=== PATIENT | male | born 1945 | race Caucasian/White ===

== ENCOUNTER 2021-01-17 14:23 | Emergency (ER) | payer MEDICARE, OTHER, SELFPAY ==
[2021-01-17 14:39] VITALS: BP 116/60; PULSE 58; RESP 16; TEMP 36.7; O2SAT 96
--- NOTE | 2021-01-17 15:13 | ED.URI ---
HPI - URI/Sore Throat General Chief Complaint: Upper Respiratory Infection Stated Complaint: Bronchitis Source: patient and RN notes reviewed Limitations: no limitations History of Present Illness HPI Narrative: The unvaccinated patient, a non-smoker/nondrinker with hx prior Covid illness, presents with a half week history of yellow sputum producing cough. No fever, wheezing, no CP, calf pain/edema, S OB, wheezing/sneezing, smokers/pet triggers, no loss of taste/smell. Symptoms are mild, slightly worse sleeping/supine Related Data Home Medications Medication Instructions Recorded Confirmed losartan 100 mg PO DAILY 01/17/21 01/17/21 Allergies Allergy/AdvReac Type Severity Reaction Status Date / Time diazepam [From Valium] AdvReac Other Verified 01/17/21 14:34 Review of Systems Review of Systems: General/Constitutional: No weight loss,fever Eyes: N0: Redness,discharge Ears/Nose/Throat: No: Epistaxis,ear discharge Respiratory: Denies: Hemoptysis Gastrointestinal: No Vomiting, Bleeding-rectal Skin: No Lumps, eruption Neurologic: No Focal Weakness,Sz Hematologic: Denies: Petechiae/Purpura Psychiatric: No: Suicida ideationl All Other Systems: Reviewed and Negative PMFSH Comments At time of signature, agree with nursing past medical, surgical, social and family history. There is no relevant family history pertinent to the presenting complaint Exam Narrative: General Appearance: Well appearing, Well nourished EYE: PERRLA, Conjunctiva clear Ears: Auditory canal normal, TM normal Nose: Rhinorrhea, Mucousal erythema Mouth/Throat: MM moist, Uvula midline, Pharyngeal erythema without exudate Neck: Supple, No adenopathy Respiratory: No respiratory distress, Breath sounds equal, Clear to auscultation Cardiovascular: RRR, No JVD Musculoskeletal: Non tender, Normal strength Skin: Warm, Dry Neurological: A&O x3, CN II-XII intact Psychiatric: Normal mood, Normal affect Course Vital Signs Vital signs: Vital Signs Temperature 98.0 F 01/17/21 14:39 Pulse Rate 58 L 01/17/21 14:39 Respiratory Rate 16 01/17/21 14:39 Blood Pressure 116/60 01/17/21 14:39 Pulse Oximetry 96 01/17/21 14:39 Temperature 98.0 F 01/17/21 14:39 Pulse Rate 58 L 01/17/21 14:39 Respiratory Rate 16 01/17/21 14:39 Blood Pressure 116/60 01/17/21 14:39 Pulse Oximetry 96 01/17/21 14:39 MDM - URI/Sore Throat Lab Data Labs: Lab Results 01/17/21 Range/Units 14:47 POC SARS CoV-2 Ag Negative (Negative) Influenza A Screen Negative Reference Range: Negative Influenza B Screen Negative Reference Range: Negative Discharge Plan Discharge Clinical Impression: Sinus headache, Cough Patient Disposition: Home, Self-Care Condition: Stable Instructions: Antibiotic Form, Acute Bronchitis (ED) Prescriptions: New benzonatate 100 mg capsule 100 mg PO TID PRN (Reason: cough) Qty: 20 RF: 2 codeine-guaifenesin 10-100 mg/5 mL liquid 7.5 ml PO BID PRN (Reason: cough) Qty: 118 RF: 0 cefuroxime axetil 500 mg tablet 500 mg PO Q12H Qty: 14 RF: 0 No Action losartan 100 mg Tablet 100 mg PO DAILY RF: 0 Follow-up/Referrals: PHYSICIAN,SHIP ENGINEER [Primary Care Provider] -
== END 2021-01-17 15:19 | disposition home or self-care (01) ==
PROVIDERS: Emergency Provider Emergency Medicine
DX: J32.9 Chronic sinusitis, unspecified (principal); R05.9 Cough, unspecified; Z20.822 Contact with and (suspected) exposure to COVID-19
CPT/HCPCS: 87426; 87804; 99213; C9803; G0463

== ENCOUNTER 2021-08-08 06:56 | Emergency (ER) | payer MEDICARE, OTHER, SELFPAY ==
[2021-08-08 06:58] VITALS: BP 113/68; PULSE 86; RESP 18; TEMP 37.1; O2SAT 95
--- NOTE | 2021-08-08 07:28 | ED.GENADULT ---
HPI - General Adult General Chief complaint: Skin/Abscess/Foreign Body Stated complaint: monkey pox Time Seen by Provider: 08/08/21 07:00 History of Present Illness HPI narrative: 76-year-old male presenting to the emergency department for evaluation of a rash to his right wrist that has progressed over the last 6 days. Patient states he initially noticed a red and vesicular rash on the right wrist and right thumb. Patient states over the course of the last 6 days he has noticed more rash the forearm up to the shoulder. Patient states that the rash does not itch and does not hurt. Patient denies any exposure to poison [place]mo. Patient states he has never had shingles before. Patient denies any other significant symptoms. Patient states he does have some pain up in his shoulder. Patient denies any falls or injuries. Patient denies any fevers. Patient was concerned for the cough. Patient has no known exposure to multiplex. Related Data Home Medications Medication Instructions Recorded Confirmed losartan 100 mg tablet 100 mg PO DAILY 01/17/21 01/17/21 Allergies Allergy/AdvReac Type Severity Reaction Status Date / Time diazepam [From Valium] AdvReac Other Verified 08/08/21 07:03 Review of Systems Review of Systems: CONSTITUTIONAL: Denies fever, chills, or sweats. EYES: Denies visual changes, redness, or discharge. ENT: Denies rhinorrhea, congestion, sore throat, or otalgia. CARDIOVASCULAR: Denies chest pain, palpitations, or edema. RESPIRATORY: Denies cough or dyspnea. GASTROINTESTINAL: Denies abdominal pain, nausea, vomiting, or diarrhea. GENITOURINARY: Denies dysuria or hematuria. SKIN: See HPI MUSCULOSKELETAL: See HPI NEUROLOGIC: Denies headache, numbness, or weakness. PSYCHIATRIC: Denies anxiety or depression. Exam Narrative: APPEARANCE: No acute distress, nontoxic, resting in bed EYES: EOMI HEENT: Normocephalic, atraumatic, OMM RESPIRATORY: No respiratory distress Clear to auscultation bilaterally with no rhonchi wheezing or rales. CARDIOVASCULAR: Regular rate and rhythm without murmurs rubs or gallops. ABDOMINAL: Soft, nontender, nondistended, no rebound or guarding MUSCULOSKELETAl: Moves all extremities. No clubbing, cyanosis or edema. NEURO: Awake and alert. Following commands, speech normal, no focal deficits SKIN: Vesicular rash on right arm consistent with a c6 dermatome. no other rash. PSYCHIATRIC: Normal affect/mood, Course Course Emergency Course: treating rash as shingles. Patient was comfortable with the plan for close outpatient follow-up. Patient was started on valacyclovir in the ED and discharged on the same. Vital Signs Vital signs: Vital Signs Temperature 98.7 F 08/08/21 06:58 Pulse Rate 86 08/08/21 06:58 Respiratory Rate 18 08/08/21 06:58 Blood Pressure 113/68 08/08/21 06:58 Pulse Oximetry 95 08/08/21 06:58 Oxygen Delivery Room Air 08/08/21 06:58 Temperature 98.7 F 08/08/21 06:58 Pulse Rate 86 08/08/21 06:58 Respiratory Rate 18 08/08/21 06:58 Blood Pressure 113/68 08/08/21 06:58 Pulse Oximetry 95 08/08/21 06:58 Oxygen Delivery Room Air 08/08/21 06:58 Medical Decision Making Vital Signs Vital Signs: Vital Signs Temperature 98.7 F 08/08/21 06:58 Pulse Rate 86 08/08/21 06:58 Respiratory Rate 18 08/08/21 06:58 Blood Pressure 113/68 08/08/21 06:58 Pulse Oximetry 95 08/08/21 06:58 Oxygen Delivery Room Air 08/08/21 06:58 Temperature 98.7 F 08/08/21 06:58 Pulse Rate 86 08/08/21 06:58 Respiratory Rate 18 08/08/21 06:58 Blood Pressure 113/68 08/08/21 06:58 Pulse Oximetry 95 08/08/21 06:58 Oxygen Delivery Room Air 08/08/21 06:58 Discharge Plan Discharge Clinical Impression: Shingles Qualifiers: Herpes zoster complications: without complications Qualified Code(s): B02.9 - Zoster without complications Patient Disposition: Home, Self-Care Condition: Stable Instructions: Antibiot
[2021-08-08] MEDS: valACYclovir HCL 500 MG TABLET 1000 MG PO (07:54)
[2021-08-08] MEDS: HYDROcodone/acetaminophen (*CRX) 5-325 MG TABLET 1 TAB PO (07:54)
== END 2021-08-08 08:12 | disposition home or self-care (01) ==
PROVIDERS: Emergency Provider Emergency Medicine
DX: B02.9 Zoster without complications (principal)
CPT/HCPCS: 99283; A9270

== ENCOUNTER 2022-01-22 00:18 | Emergency (ER) | payer MEDICARE, OTHER, SELFPAY ==
[2022-01-22 00:21] VITALS: BP 148/73; PULSE 77; RESP 20; TEMP 36.9; O2SAT 98
[2022-01-22 01:19] LABS: Appearance Urine Clear (Clear); Bilirubin Urine Negative (Negative); Blood Urine Negative (Negative); Color Urine Yellow (Yellow); Glucose Urine UA Negative (Negative); Ketones Urine Negative (Negative); Leukocyte Esterase Ur Negative LEU/UL (Negative); Nitrate Urine Negative (Negative); Protein Urine Negative (Negative); Urobilinogen Urine 0.2 mg/dL (<2.0)
[2022-01-22 01:20] LABS: Add Urine Microscopic? NO
--- NOTE | 2022-01-22 03:01 | ED.GENADULT ---
HPI - General Adult General Chief complaint: Urogenital-Male Stated complaint: urinary spasms Time Seen by Provider: 01/22/22 01:59 History of Present Illness HPI narrative: This is a 77-year-old male presenting to ED with chief complaint of prostate spasms. Patient says that he has had prostate issues for a long time. He has had a TURP recently. Patient reports sharp pain in his perineum and rectum when he tries to urinate. He is having difficulty initiating and maintaining his urine stream. Patient has not taken anything for his symptoms. He denies pain on urination, urinary urgency or frequency but feels like he is having incomplete voiding. Related Data Home Medications Medication Instructions Recorded Confirmed losartan 100 mg tablet 100 mg PO DAILY 01/17/21 01/17/21 Allergies Allergy/AdvReac Type Severity Reaction Status Date / Time diazepam [From Valium] AdvReac Other Verified 08/08/21 07:03 Review of Systems Review of Systems: CONSTITUTIONAL: Denies night sweats. EYES: No eye pain ENT: Denies rhinorrhea CARDIOVASCULAR: Denies palpitations RESPIRATORY: Denies hemoptysis GASTROINTESTINAL: Denies hematemesis GENITOURINARY: Denies hematuria. SKIN: Denies rash MUSCULOSKELETAL: Denies myalgia. NEUROLOGIC: Denies weakness. PSYCHIATRIC: Denies delusions PMFSH Past Medical History Medical History BPH (benign prostatic hyperplasia) GERD (gastroesophageal reflux disease) HTN (hypertension) Surgical History Surgical History H/O arthroscopic knee surgery H/O hernia repair S/P TURP Social History Social History Social History: patient denies use of alcohol cigarettes or drugs Exam Narrative: APPEARANCE: No apparent distress. Head: atraumatic. EYES: EOMI, NOSE: Atraumatic NECK: Trachea midline RESPIRATORY: No increased rate of breathing CARDIOVASCULAR: RRR, ABDOMINAL: Non-distended no tenderness in the suprapubic area, no guarding or rebound Rectal exam: Smooth prostate without bogginess or tenderness MUSCULOSKELETAl: No obvious deformities NEURO: Alert. Moving 4/4 extremities SKIN:: Warm, dry. Normal color PSYCHIATRIC: Normal affect Course Vital Signs Vital signs: Vital Signs Temperature 98.4 F 01/22/22 00:21 Pulse Rate 77 01/22/22 00:21 Respiratory Rate 20 01/22/22 00:21 Blood Pressure 148/73 H 01/22/22 00:21 Pulse Oximetry 98 01/22/22 00:21 Oxygen Delivery Room Air 01/22/22 00:21 Temperature 98.4 F 01/22/22 00:21 Pulse Rate 77 01/22/22 00:21 Respiratory Rate 20 01/22/22 00:21 Blood Pressure 148/73 H 01/22/22 00:21 Pulse Oximetry 98 01/22/22 00:21 Oxygen Delivery Room Air 01/22/22 00:21 Medical Decision Making MDM Narrative Medical decision making narrative: is a 77-year-old male presenting to the ED with difficulty urinary and painful spasms. Patient be treated Motrin Tylenol and a belladonna suppository. Urinalysis did no indicate infection. Bladder scan was performed. Postvoid residual was 125. Patient is not retaining urine there is no indication for Ramírez placement. Patient was able to urinate after the belladonna suppository. He is not reporting pain. He will be discharged with urology follow-up. Vital Signs Vital Signs: Vital Signs Temperature 98.4 F 01/22/22 00:21 Pulse Rate 77 01/22/22 00:21 Respiratory Rate 20 01/22/22 00:21 Blood Pressure 148/73 H 01/22/22 00:21 Pulse Oximetry 98 01/22/22 00:21 Oxygen Delivery Room Air 01/22/22 00:21 Temperature 98.4 F 01/22/22 00:21 Pulse Rate 77 01/22/22 00:21 Respiratory Rate 20 01/22/22 00:21 Blood Pressure 148/73 H 01/22/22 00:21 Pulse Oximetry 98 01/22/22 00:21 Oxygen Delivery Room Air 01/22/22 00:21 Lab Data Labs: Lab Results 01/22/22 Range/Units
[2022-01-22] MEDS: guaiFENesin/DEXTROMETHORPHAN 10 ML UDC PO (04:59)
[2022-01-22 05:01] VITALS: BP 109/80; PULSE 80; RESP 12; O2SAT 97
[2022-01-22] MEDS: HYDROcodone/acetaminophen (*CRX) 5-325 MG TABLET 1 TAB PO (05:23)
== END 2022-01-22 05:20 | disposition home or self-care (01) ==
PROVIDERS: Emergency Provider Emergency Medicine
DX: N35.919 Unspecified urethral stricture, male, unspecified site (principal); N40.0 Benign prostatic hyperplasia without lower urinary tract symptoms; I10 Essential (primary) hypertension; K21.9 Gastro-esophageal reflux disease without esophagitis
CPT/HCPCS: 81003; 99283; A9270

== ENCOUNTER 2023-08-07 15:42 | Inpatient (IN) | payer MEDICARE, SELFPAY ==
--- NOTE | ~2023-08-07 | XR_ITS ---
EXAMINATION: XR chest 2V DATE: 08/07/2023 16:10 INDICATION: Chest pressure. TECHNIQUE: Frontal and lateral views of the chest were obtained. COMPARISON: None. FINDINGS: A calcified right lung nodule and calcified right hilar lymph nodes are consistent with old granulomatous disease. No pleural effusion or pneumothorax. The heart size is normal. IMPRESSION: 1. No acute cardiopulmonary disease. Reviewed, dictated and finalized at location E.
--- NOTE | 2023-08-07 15:43 | ECG_ITS ---
Test Date: 2023-08-07 15:55:33 Measurements Intervals [place] Rate: 67 P: 41 OH: 149 QRS: 25 QRSD: 121 T: 38 QT: 383 QTc: 406 Interpretive Statements SINUS RHYTHM WITH SINUS ARRHYTHMIA WITHIN NORMAL LIMITS No previous ECG available for comparison Electronically Signed On 08-08-2023 07:20:08 CDT by Scooby Osei M.D.
[2023-08-07 15:48] VITALS: BP 151/59; PULSE 70; RESP 16; TEMP 36.3; O2SAT 100
[2023-08-07 16:09] LABS: Basophils Absolute Auto 0.1 K/mm3 (0.0-0.1); Basophils Percent Auto 1.1 % (0.2-1.2); Eosinophils Absolute Auto 0.1 K/mm3 (0-0.3); Eosinophils Percent Auto 2.2 % (0-4.4); Hematocrit 39.2 % (42.0-52.0); Hemoglobin 13.1 g/dL (14.0-18.0); Immature Granulocyte Absolute 0.01 K/mm3 (0.00-0.031); Immature Granulocyte Percent A 0.2 % (0-0.5); Lymphocytes Absolute Auto 1.39 K/mm3 (0.9-3.2); Lymphocytes Percent Auto 31.1 % (18.3-44.2); Mean Corpuscular HGB Conc 33.4 g/dl (32-36); Mean Corpuscular Hemoglobin 30.6 pg (26-34); Mean Corpuscular Volume 91.6 fl (80-100); Mean Platelet Volume 9.8 fl (7.4-10.4); Monocytes Absolute Auto 0.3 K/mm3 (0.1-0.6); Monocytes Percent Auto 7.6 % (2.6-8.5); Neutrophils Absolute Auto 2.6 K/mm3 (1.3-6.7); Neutrophils Percent Auto 57.8 % (45.5-73.1); Platelet Count Result 202 k/mm3 (150-375); Red Blood Count 4.28 M/mm3 (4.6-6.20); Red Cell Distribution Width 12.8 % (11.5-14.5); White Blood Count 4.5 K/mm3 (4.5-10.0)
[2023-08-07 16:20] LABS: Alanine Aminotransferase 13 U/L (6-50); Albumin Level 3.9 g/dL (3.5-5.1); Alkaline Phosphatase 58 U/L (38-126); Anion Gap 4 mmol/L (4-12); Aspartate Amino Transferase 20 U/L (17-59); Bilirubin,Total 0.5 mg/dL (0.2-1.3); Blood Urea Nitrogen 12 mg/dL (9-20); Calcium 8.4 mg/dL (8.4-10.2); Carbon Dioxide 27 mmol/L (22-30); Chloride 105 mmol/L (98-107); Estimated CRCL calculation 50 ml/min; Estimated Glomerular Filt Rate 54; Glucose 135 mg/dL (65-110); Lipase 91 U/L (23-300); Potassium 3.8 mmol/L (3.4-5.0); Sodium 136 mmol/L (137-145)
[2023-08-07 16:31] LABS: Troponin I < 0.012 ng/mL (0.000-0.034)
[2023-08-07 16:37] LABS: Prothrombin Time 13.7 Seconds (11.1-14.7)
[2023-08-07 16:38] LABS: Partial Thromboplastin Time 27.9 Seconds (22.3-36.8)
--- NOTE | 2023-08-07 18:42 | ECG_ITS ---
Test Date: 2023-08-07 18:46:25 Measurements Intervals [place] Rate: 58 P: 43 AR: 156 QRS: 11 QRSD: 106 T: 34 QT: 397 QTc: 391 Interpretive Statements SINUS BRADYCARDIA OTHERWISE NORMAL ELECTROCARDIOGRAM Compared to ECG 08/07/2023 15:55:33 SOME REDUCTION IN HEART RATE OTHERWISE NO DIFFERENCE Electronically Signed On 08-08-2023 07:24:57 CDT by Scooby Osei M.D.
--- NOTE | 2023-08-07 19:27 | PC.NURSE ---
Assumed care of pt from ISA Ricks at this time. Pt resting comfortably in bed w call light within reach.
[2023-08-07 19:28] LABS: Troponin I 0.027 ng/mL (0.000-0.034)
[2023-08-07 19:36] VITALS: BP 121/74; PULSE 55; RESP 17; O2SAT 97
[2023-08-07 19:53] LABS: NT Pro B Type Natriuretic Pept 216 pg/mL (19.9-100)
[2023-08-07 20:00] LABS: D Dimer 0.28 ug/mL (<0.48)
--- NOTE | 2023-08-07 20:10 | ED.GENADULT ---
HPI - General Adult General Chief complaint: Chest Pain Stated complaint: chest pressure Time Seen by Provider: 08/07/23 19:22 History of Present Illness HPI narrative: This is a 78-year-old male presenting ED with chief complaint of chest pain. Patient states that over the last week he has been having intermittent chest tightness that radiates to both shoulders and hands. It is triggered by exertion and resolves when he rests. He has never had pain like this before the last week. It is associated with diaphoresis and nausea. No fevers chills productive cough or lower extremity edema. He has no history of cardiac disease or SD. patient has no pain at this time. Related Data Home Medications Medication Instructions Recorded Confirmed losartan 100 mg tablet 100 mg PO DAILY 01/17/21 01/17/21 Allergies Allergy/AdvReac Type Severity Reaction Status Date / Time diazepam [From Valium] AdvReac Other Verified 08/08/21 07:03 PMFSH Past Medical History Medical History BPH (benign prostatic hyperplasia) GERD (gastroesophageal reflux disease) HTN (hypertension) Surgical History Surgical History H/O arthroscopic knee surgery H/O hernia repair S/P TURP Social History Social History Social History: patient denies use of alcohol cigarettes or drugs Exam Narrative: APPEARANCE: No apparent distress. Head: atraumatic. EYES: EOMI, NOSE: Atraumatic NECK: Trachea midline RESPIRATORY: No increased rate of breathing Clear to auscultation CARDIOVASCULAR: RRR, no peripheral edema ABDOMINAL: Non-distended MUSCULOSKELETAl: No obvious deformities NEURO: Alert. Moving 4/4 extremities SKIN:: Warm, dry. Normal color PSYCHIATRIC: Normal affect Course Vital Signs Vital signs: Vital Signs Temperature 97.3 F L 08/07/23 15:48 Pulse Rate 70 08/07/23 15:48 Respiratory Rate 16 08/07/23 15:48 Blood Pressure 151/59 H 08/07/23 15:48 Pulse Oximetry 100 08/07/23 15:48 Oxygen Delivery Room Air 08/07/23 15:48 Temperature 97.3 F L 08/07/23 15:48 Pulse Rate 55 L 08/07/23 19:36 Respiratory Rate 17 08/07/23 19:36 Blood Pressure 121/74 08/07/23 19:36 Pulse Oximetry 97 08/07/23 19:36 Oxygen Delivery Room Air 08/07/23 19:36 Medical Decision Making MDM Narrative Medical decision making narrative: -Course: 78-year-old male presenting exertional chest pain x1 week. Initial troponin <.012 -> .027. Will continue to trend. EKG without ischemic changes. Chest x-ray unremarkable. Patient does not have any chest pain at rest but is triggerable by short bouts of exertion like walking to his car or up steps. Patient will be admitted to the hospital for management UA/NSTEMI. -DDX includes but is not limited to: ACS spectrum, pneumonia, pneumothorax, PE, aortic pathology -Co-morbidities complicating care: hypertension -Independent interpretation of studies: labs reviewed. Troponin is listed above. Chest x-ray normal Independent EKG interpretation: Rhythm [sinus], Rate [58], [place] -[normal], [place] -[normal], QRS [narrow], QTC [normal], T waves -[negative for concerning inversions], ST Segments - [Negative for concerning elevations] Final interpretations: [Normal Sinus Rhythm] -Discussion of Management/Consultants: Lissa - Hospitalist -Interventions: aspirin, heparin drip -Shared decision making / Disposition: admitted Vital Signs Vital Signs: Vital Signs Temperature 97.3 F L 08/07/23 15:48 Pulse Rate 70 08/07/23 15:48 Respiratory Rate 16 08/07/23 15:48 Blood Pressure 151/59 H 08/07/23 15:48 Pulse Oximetry 100 08/07/23 15:48 Oxygen Delivery Room Air 08/07/23 15:48 Temperature 97.3 F L 08/07/23 15:48 Pulse Rate 55 L 08/07/23 19:36 Respiratory Rate 17 08/07/23 19:36 Blood Pressure 121/74 08/07/23 19:3
[2023-08-07] MEDS: HEPARIN SOD/D5W 100 UNITS/ML 25,000 UNITS/250 ML BAG 10 UNITS IV CONT (20:56)
[2023-08-07] MEDS: HEPARIN SODIUM 5,000 UNITS/ML VIAL 4000 UNITS IV PUSH (20:57)
[2023-08-07] MEDS: ASPIRIN 81 MG CHEWABLE TABLET 324 MG PO (20:57)
[2023-08-07 21:07] LABS: Basophils Percent Auto 0.7 % (0.2-1.2); Eosinophils Absolute Auto 0.1 K/mm3 (0-0.3); Eosinophils Percent Auto 2.2 % (0-4.4); Hematocrit 40.6 % (42.0-52.0); Hemoglobin 13.6 g/dL (14.0-18.0); Immature Granulocyte Absolute 0.01 K/mm3 (0.00-0.031); Immature Granulocyte Percent A 0.2 % (0-0.5); Lymphocytes Absolute Auto 2.06 K/mm3 (0.9-3.2); Lymphocytes Percent Auto 37.3 % (18.3-44.2); Mean Corpuscular HGB Conc 33.5 g/dl (32-36); Mean Corpuscular Hemoglobin 30.5 pg (26-34); Mean Platelet Volume 9.9 fl (7.4-10.4); Monocytes Absolute Auto 0.5 K/mm3 (0.1-0.6); Monocytes Percent Auto 8.7 % (2.6-8.5); Neutrophils Absolute Auto 2.8 K/mm3 (1.3-6.7); Neutrophils Percent Auto 50.9 % (45.5-73.1); Platelet Count Result 220 k/mm3 (150-375); Red Blood Count 4.46 M/mm3 (4.6-6.20); Red Cell Distribution Width 12.8 % (11.5-14.5); White Blood Count 5.5 K/mm3 (4.5-10.0)
[2023-08-07 21:22] LABS: Partial Thromboplastin Time 27.8 Seconds (22.3-36.8); Prothrombin Time 13.2 Seconds (11.1-14.7)
[2023-08-07 21:23] VITALS: BP 128/65; PULSE 65; RESP 16; O2SAT 97
[2023-08-07 21:35] VITALS: BP 160/79; PULSE 51; RESP 18; TEMP 36.1; O2SAT 97; BMI 33.0
--- NOTE | 2023-08-07 21:35 | PC.NURSE ---
This patient, Edd Jc, was admitted to IMU Room 205-02. Patient/family oriented to hospital policies and general routines including ID bracelet, bed and alarms, visiting hours, pain management, procedures, bathroom and other care routines, personal items, smoking policy, room service/diet, and visiting hours. Information on how to activate the Rapid Response Team has been discussed. Patient/Family are encouraged to report perceived risks to care and to ask questions if they do not understand what they are told or what they should do.
[2023-08-07 22:00] VITALS: PULSE 77
[2023-08-07 22:53] LABS: Troponin I 0.023 ng/mL (0.000-0.034)
[2023-08-07 23:56] VITALS: BP 139/71; PULSE 58; RESP 18; TEMP 36.6; O2SAT 98
[2023-08-08] VITALS (15 sets, daily range): BP systolic 121–147; BP diastolic 54–73; PULSE 47–82; RESP 16–20; TEMP 36.5–37; O2SAT 95–98
--- NOTE | 2023-08-08 | EST_ITS ---
Patient Info Name: Edd Jc Age: 78 years : 1945 Gender: Male Ht: 68 in Wt: 212 lbs BSA: 2.18 m2 HR: 81 bpm BP: 131 / 69 mmHg Exam Date: 08/08/2023 11:20 AM Exam Location: Echo Lab Patient Status: Inpatient Admit Date: 08/07/2023 Staff Ordering Physician: Scooby Osei MD Ice Guard Tester: Piper Carr RDCS Attending Provider: ANGEL RODRÍGUEZ NP Referring Physician: Sea FRANKLIN; Exercise Technologist: Zehra Moreno RDCS Nurse: Angel Rodríguez APN Exam Type: CA stress echo Study Info Indications R07.9 - Chest pain, unspecified Summary 1. Sinus bradycardia/otherwise normal ECG. 2. Exercise induced ST segment depression of less than 1 mm inferolaterally also with T-wave inversion in these leads which persisted into 8 minutes of recovery. 3. Resting echocardiogram demonstrates preserved left ventricular systolic function,. 4. Stress images demonstrate ischemia of the lateral segment as well as of the anteroseptal segment. 5. Apical indicates failure of LV to become smaller following exercise. 6. Positive stress echo with equivocal ECG findings but wall motion abnormalities which are diagnostic as detailed above. Protocol: [place] Stress ECG Details Stage: REST Duration (min): 23 min : 31 sec Speed (mph): 0.0 Grade (%): 0 HR (bpm): 54 SBP (mmHg): 131 DBP (mmHg): 69 METS: --- Stage: REST Duration (min): 31 min : 10 sec Speed (mph): 0.0 Grade (%): 0 HR (bpm): 82 SBP (mmHg): 131 DBP (mmHg): 69 METS: --- Stage: STAGE 1 Duration (min): 1 min : 0 sec Speed (mph): 1.7 Grade (%): 10 HR (bpm): 106 SBP (mmHg): 131 DBP (mmHg): 69 METS: --- Stage: STAGE 1 Duration (min): 2 min : 0 sec Speed (mph): 1.7 Grade (%): 10 HR (bpm): 118 SBP (mmHg): 131 DBP (mmHg): 69 METS: --- Stage: STAGE 1 Duration (min): 3 min : 0 sec Speed (mph): 1.7 Grade (%): 10 HR (bpm): 112 SBP (mmHg): 147 DBP (mmHg): 70 METS: --- Stage: STAGE 2 Duration (min): 1 min : 0 sec Speed (mph): 0.0 Grade (%): 0 HR (bpm): 123 SBP (mmHg): 147 DBP (mmHg): 70 METS: --- Stage: STAGE 2 Duration (min): 1 min : 3 sec Speed (mph): 0.0 Grade (%): 0 HR (bpm): 123 SBP (mmHg): 147 DBP (mmHg): 70 METS: --- Stage: RECOVERY Duration (min): 0 min : 56 sec Speed (mph): 0.0 Grade (%): 0 HR (bpm): 102 SBP (mmHg): 147 DBP (mmHg): 70 METS: --- Stage: RECOVERY Duration (min): 1 min : 56 sec Speed (mph): 0.0 Grade (%): 0 HR (bpm): 69 SBP (mmHg): 147 DBP (mmHg): 70 METS: --- Stage: RECOVERY Duration (min): 2 min : 56 sec Speed (mph): 0.0 Grade (%): 0 HR (bpm): 66 SBP (mmHg): 147 DBP (mmHg): 70 METS: --- Stage: RECOVERY Duration (min): 3 min : 56 sec Speed (mph): 0.0 Grade (%): 0 HR (bpm): 64 SBP (mmHg): 148 DBP (mmHg): 79 METS: --- Stage: RECOVERY Duration (min): 4 min : 56 sec Speed (mph): 0.0 Grade (%): 0 HR (bpm):
--- NOTE | 2023-08-08 | ECHO_ITS ---
Patient Info Name: Edd Jc Age: 78 years : 1945 Gender: Male Ht: 68 in Wt: 212 lbs BSA: 2.18 m2 HR: 66 bpm BP: 134 / 95 mmHg Heart Rhythm: Sinus Rhythm Technical Quality: Good Exam Date: 08/08/2023 12:20 PM Exam Location: Echo Lab Patient Status: Inpatient Admit Date: 08/07/2023 Staff Ordering Physician: Bridget Cunha APRN Medical Record Consultant: Piper Carr RDCS Attending Provider: Bridget Cunha APRN Referring Physician: Alphonse CHILD; Exam Type: CA echo dop color flow w con Study Info Indications R07.9 - Chest pain, unspecified R00.1 - Bradycardia, unspecified Complete two-dimensional, color flow and Doppler transthoracic echocardiogram is performed with contrast to opacify the left ventricle and to improve the deliniation of the left ventricle endocardial borders. Contrast/Agitated Saline Contrast/Ag. Saline: Definity Amount: 3.00 ml Administered By: Piper Carr RDCS Existing IV Access: Yes IV Access Condition: patent with no signs of infiltration Summary 1. Normal left ventricular size and overall normal ejection fraction with posterior hypokinesia. 2. Modest left atrial enlargement. 3. Trivial [place] valvular insufficiency. Left Ventricle Left ventricular chamber dimension is normal. Left ventricular systolic function is normal, estimated at 50-55%. The left ventricular diastolic function is normal. Right Ventricle Right ventricular chamber dimension is normal. Left Atria Left atrial chamber dimension is normal. Right Atria Right atrial chamber dimension is normal. Aortic Valve The aortic valve is normal. There is trace aortic valve regurgitation. Pulmonic Valve The pulmonic valve is normal. There is mild pulmonic regurgitation. Mitral Valve The mitral valve has normal leaflets. There is trace mitral valve regurgitation. Tricuspid Valve The tricuspid valve leaflets are normal. There is mild tricuspid valve regurgitation. Pericardium/Pleural The pericardium appears normal. Aorta The aortic root size at the sinus of Valsalva is normal. Left Ventricular Outflow Tract Name Value Normal LVOT 2D LVOT Diameter 2.05 cm LVOT Doppler LVOT Peak Gradient 4 mmHg LVOT Mean Gradient 2 mmHg LVOT VTI 21.41 cm LVOT VTI/AV VTI Ratio 0.97 LVOT Stroke Volume 70.39 ml LVOT CO 4.17 l/min LVOT CI 1.91 L/min/m2 Pulmonic Valve Name Value Normal RVOT Doppler RVOT Peak Gradient 1 mmHg PV Doppler PV Peak Gradient 5 mmHg Mitral Valve Name Value
--- NOTE | 2023-08-08 02:21 | PM.IMHP ---
H&P: HPI History of Present Illness Date/Time: 08/08/23 01:05 Chief Complaint: Chest heaviness Narrative: 78-year-old male with past medical history of essential BPH, hypertension, hyperlipidemia and GERD who presented to the ER with chest heaviness that radiated to his shoulders and down his arms. The patient reports that for the last week he has been having intermittent chest discomfort that is been escalating in intensity. He reports that his most recent episode was a 7/10 in intensity and lasted for 2-3 minutes. It occurred while he was slowly walking to the store. The pain improves with rest. He did have some associated diaphoresis and nausea. He denies any cough, congestion, orthopnea, paroxysmal nocturnal dyspnea. He does have a history of hyperlipidemia for which he has not taken medications since diagnosis. He also reports history of hypertension but has never been on antihypertensive. He occasionally will have GERD for which he takes [id number] omeprazole. He has not had a recurrence of chest pain since coming to the ER. His initial troponin was negative and is repeat troponin doubled from baseline but was still within the negative reference range. Given the concerning nature of patient's symptoms and escalating nature patient was admitted for his anginal chest pain. EKG was negative for evidence of ischemia. Patient was started on heparin drip in ER and received full-dose aspirin. He reports that he is active on a day-to-day basis but does not particularly exercise. He does report that his eyes have been itching and he was concerned that the itching in his eyes could be due to hyperthyroidism. 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 He denies burning in his eyes. He denies having seasonal allergies Review of Systems Review of Systems: 12 systems were reviewed with pertinent positives and negatives per HPI. Except as documented in the HPI, all other systems were reviewed and are negative. [facility] Past Medical History Medical History (Updated 08/08/23 @ 03:13 by Samantha Alcaraz DO) BPH (benign prostatic hyperplasia) GERD (gastroesophageal reflux disease) History of right inguinal hernia HTN (hypertension) Hyperlipidemia Surgical History Surgical History (Updated 08/08/23 @ 02:56 by Samantha Alcaraz DO) H/O arthroscopic knee surgery Bilateral meniscus repair History of umbilical hernia repair S/P TURP Family History Family History Grandparent Acute myocardial infarction Social History Social History (Updated 08/08/23 @ 03:17 by Samantha Alcaraz DO) Social History: Patient lives with his of over 50 years. He denies any history of tobacco, alcohol or illicit substance use. 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 Code status: Full code Surrogate decision maker: Smoking status: Never smoker Alcohol intake: never Substance use: never Substance use type: does not use Do You Feel Safe in your Home?: Yes Lack of Transportation: No Lack of Food: Never True Current Housing: I Have Housing Concerned About Future Housing: No Difficulty Paying Gas/Electric Bills: No Difficulty Paying for Meds: No Currently Unemployed: No Education: Decline to Answer Difficulty w/ Childcare or Family Care: No Spiritual care concerns: No Meds Home Medications and Allergies Home Medications Medication Instructions Recorded Confirmed Type omeprazole 20 mg capsule,delayed 20 mg PO DAILY PRN Heartburn 08/07/23 08/07/23 History release Allergies Allergy/AdvReac Type Severity Reaction Status Date / Time diazepam [From Valium] AdvReac Severe Other Verified 08/07/23 21:40 Vital Signs Vital Signs - 24 hr 08/07/23 15:48 08/07/23 19:36 08/07/23 19:36 Temperature 97.3 F L Pulse Rate 70 55 L Respiratory Rate 16 17 Blood Press
[2023-08-08 04:26] LABS: Basophils Absolute Auto 0.1 K/mm3 (0.0-0.1); Basophils Percent Auto 1.1 % (0.2-1.2); Eosinophils Absolute Auto 0.1 K/mm3 (0-0.3); Eosinophils Percent Auto 2.5 % (0-4.4); Hemoglobin 13.8 g/dL (14.0-18.0); Immature Granulocyte Absolute 0.01 K/mm3 (0.00-0.031); Immature Granulocyte Percent A 0.2 % (0-0.5); Lymphocytes Absolute Auto 2.09 K/mm3 (0.9-3.2); Lymphocytes Percent Auto 44.2 % (18.3-44.2); Mean Corpuscular HGB Conc 32.9 g/dl (32-36); Mean Corpuscular Hemoglobin 30.3 pg (26-34); Mean Corpuscular Volume 92.1 fl (80-100); Mean Platelet Volume 10.5 fl (7.4-10.4); Monocytes Absolute Auto 0.4 K/mm3 (0.1-0.6); Monocytes Percent Auto 7.8 % (2.6-8.5); Neutrophils Absolute Auto 2.1 K/mm3 (1.3-6.7); Neutrophils Percent Auto 44.2 % (45.5-73.1); Platelet Count Result 217 k/mm3 (150-375); Red Blood Count 4.56 M/mm3 (4.6-6.20); Red Cell Distribution Width 12.7 % (11.5-14.5); White Blood Count 4.7 K/mm3 (4.5-10.0)
[2023-08-08 04:34] LABS: Cholesterol 204 mg/dL (0-200); HDL Direct 45 mg/dL; Triglycerides 128 mg/dL (<150)
[2023-08-08 04:39] LABS: Partial Thromboplastin Time 78.1 Seconds (22.3-36.8)
[2023-08-08 04:45] LABS: LDL Cholesterol Direct 130 mg/dL
[2023-08-08] MEDS: ASPIRIN 81 MG ENTERIC TABLET PO (08:35)
[2023-08-08] MEDS: PANTOPRAZOLE SODIUM IV 40 MG VIAL IV PUSH (08:35)
--- NOTE | 2023-08-08 09:54 | PM.CNCAR ---
Assessment and Plan Assessment and plan (1) Angina of effort: Code(s): I20.89 - Other forms of angina pectoris Status: Acute Plan 78-year-old man with hypertension and hyperlipidemia presenting with a 3 week history of intermittent chest pain. The pain in my opinion was concerning enough to recommend a coronary angiogram and that is what I recommended. The patient however would like to proceed with a noninvasive evaluation before making that decision. We discussed the options of invasive and noninvasive ischemic testing. Because it is his preference we will go ahead with a stress echocardiogram today. I did of course tell the patient and his that if this test is not normal and angiogram would be recommended. The likelihood is that would not happen until tomorrow based on his desire to proceed with stress testing initially. Will correspond with further recommendations following the stress test and the findings. Scooby Osei MD [facility] History of Present Illness History of Present Illness Consult date/time: 08/08/23 09:54 Reason For Visit: UA/NSTEMI Narrative: This is a 78-year-old man I am seeing at the request of the hospitalist because of chest pain. He came to the emergency room last evening and was admitted to the hospital for evaluation. He is describing the onset of symptoms about 3 weeks ago where have intermittent episodes of central chest pressure that radiates into the shoulders bilaterally. This symptom occurs both with and without exertion. The patient provided a history of exertional chest pain to the emergency room physician. He tells me at this point that this symptoms can sometimes occur at home while he is at rest. In any event following admission his electrocardiograms looked normal as to his troponin levels and in this setting I am seeing him in consultation. He does have a history of hypertension and dyslipidemia. He was taking losartan for his blood pressure but has been noncompliant in continuing it. His physician has not yet recommended any medical anti lipid therapy. He has no history of diabetes smoking or family history of premature ischemic heart disease. He is denying any symptoms of orthopnea PND edema palpitations or syncope. 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 Review of Systems Constitutional: Constitutional: Reports no additional constitutional complaints Eyes: Eyes: Reports no additional eye complaints ENT: Reports system reviewed and no additional complaints, except as documented Cardiovascular: Cardiovascular: Reports no additional cardiovascular complaints Respiratory: Respiratory: Reports no additional respiratory complaints Gastrointestinal: Gastrointestinal: Reports no additional gastrointestinal complaints Musculoskeletal: Musculoskeletal: Reports back pain Integumentary/Breasts: Skin/Breast: Reports system reviewed and no additional complaints, except as docu Neurologic: Reports system reviewed and no additional complaints, except as documented Endocrine: Endocrine: Reports no additional endocrine complaints Hematologic/Lymphatic: Hematologic/Lymphatic: Reports no additional hematologic/lymphatic complaints Allergic/Immunologic: Allergic/Immunologic: Reports no additional allergic/immunologic complaints PMFSH Past Medical History Medical History (Updated 08/08/23 @ 03:13 by Samantha Alcaraz DO) BPH (benign prostatic hyperplasia) GERD (gastroesophageal reflux disease) History of right inguinal hernia HTN (hypertension) Hyperlipidemia Surgical History Surgical History (Updated 08/08/23 @ 02:56 by Samantha Alcaraz DO) H/O arthroscopic knee surgery Bilateral meniscus repair History of umbilical hernia repair S/P TURP Family History Family History Grandparent Acute myocardial infarction Social History Social History (Updated 08/08/23 @ 03:17 by Samantha Alcaraz DO) Social History:
[2023-08-08 10:25] LABS: Partial Thromboplastin Time 55.1 Seconds (22.3-36.8)
[2023-08-08] MEDS: HEPARIN SODIUM 5,000 UNITS/ML VIAL 3000 UNITS IV PUSH (10:31)
--- NOTE | 2023-08-08 12:08 | PC.NURSE ---
1150- to cardiology dept for stress echo via w/c accompanied by staff
[2023-08-08] MEDS: PERFLUTREN LIPID MICROSPHERES 1.5 ML VIAL DILUTED TO 10 ML TOTAL VOLUME IV PUSH (12:50)
--- NOTE | 2023-08-08 13:01 | IVDEFINITY ---
Prior to administration of IV Definity the patient was educated on the risks and benefits of the imaging enhancing agent including potential adverse side effects. The patient verbalized understanding. Allergies were verified. No exclusion criteria were identified and at least one of the following inclusion criteria were met: 1) physician request, 2) patient technically difficult to image (per the [place] [employer]ocardi[employer] guidelines of two or more segments not discernable within the apical view), or 3) questionable left ventricular function. ?
--- NOTE | 2023-08-08 14:19 | P.PNCROSS_ITS ---
Event Note Event Note Event Note: Patient had been seen by previous provider same day. Follow-up assessment pat ient denied any further chest pain at rest however still had chest pressure with exertion but troponins negative x 3. Due to patient quality of symptoms it was recommended by cardiology for coronary angiogram. I ordered a echo to evaluate valves and for wall motion. Patient at this time requested a non-invasive ischemic testing be performed prior, so a stress test was performed, stress echo did show ST depression and T-wave inversion with images demonstrating ischemia of the lateral segment and anteroseptal. Will place patient NPO and plan for coronary angiogram tomorrow.
--- NOTE | 2023-08-08 15:07 | PM.PNCARD ---
Progress Note: A&P Assessment and Plan (1) Angina of effort: Code(s): I20.89 - Other forms of angina pectoris Status: Acute Plan 78-year-old man with presumed coronary disease with a recent onset of exertional chest pain syndrome suggestive of angina. Exercise stress echo was done this morning which is abnormal. Electrocardiographic abnormalities are relatively modest however echocardiographic images are certainly consistent with multivessel disease. He is now agreeable to angiography given these findings this will be arranged for tomorrow Scooby Osei MD [facility] Subjective Date/time seen: Date of service: 08/08/23 15:07 Interval history: Follow-up visit in this 78-year-old man with: Recent onset of chest pain syndrome consistent with angina. Exercise stress echo done today is abnormal as detailed in the report. He is comfortable and offers no complaints at rest. Discussed and recommended proceeding with left heart catheterization which was my initial recommendation this morning. He understands this and is agreeable Exam Const: General: comfortable and no acute distress HENMT: Mouth: Yes moist mucous membranes Eyes: Sclera: sclerae normal Neck: Neck: supple and no JVD Resp: Effort & Inspection: normal respiratory effort Auscultation: clear to auscultation bilaterally Cardio: Rate: regular rate Rhythm: regular rhythm Other: No audible murmur or gallop GI: GI Palp: Yes Soft to palpation Auscultation: normal bowel sounds Skin: General skin exam: normal color Neuro: Other: Alert and oriented x3 Extrem: Other: No edema, adequate perfusion Objective Data Vital Signs Vital Signs: Vital Signs - 24 hr 08/07/23 15:48 08/07/23 19:36 08/07/23 19:36 Temperature 36.3 C L Pulse Rate 70 55 L Respiratory Rate 16 17 Blood Pressure 151/59 H 121/74 Pulse Oximetry 100 97 97 Oxygen Delivery Room Air Room Air 08/07/23 21:23 08/07/23 21:35 08/07/23 22:00 Temperature 36.1 C L Pulse Rate 65 51 L 77 Respiratory Rate 16 18 Blood Pressure 128/65 160/79 H Pulse Oximetry 97 97 Oxygen Delivery 08/07/23 21:35 08/07/23 23:56 08/08/23 00:00 Temperature 36.6 C Pulse Rate 58 L 68 Respiratory Rate 18 Blood Pressure 139/71 Pulse Oximetry 98 Oxygen Delivery Room Air 08/08/23 02:00 08/08/23 04:00 08/08/23 04:00 Temperature 36.6 C Pulse Rate 55 L 47 L 50 L Respiratory Rate 20 Blood Pressure 121/60 Pulse Oximetry 98 Oxygen Delivery 08/08/23 06:00 08/08/23 07:16 08/08/23 08:00 Temperature 36.6 C Pulse Rate 54 L 52 L 50 L Respiratory Rate 18 Blood Pressure 134/65 Pulse Oximetry 96 Oxygen Delivery 08/08/23 10:00 08/08/23 11:35 08/08/23 11:45 Temperature 36.6 C Pulse Rate 59 L 78 67 Respiratory Rate 18 Blood Pressure 147/73 H Pulse Oximetry 97 Oxygen Delivery 08/08/23 14:30 Temperature Pulse Rate 82 Respiratory Rate Blood Pressure Pulse Oximetry Oxygen Delivery Intake/Output Intake/Output: Intake & Output 08/05/23 08/06/23 08/07/23 08/08/23 23:59 23:59 23:59 23:59 Intake Total 376.0 Output Total 1250 Balance -874.0 Meds/Results Medications: Active Medications Generic Name Dose Route Start Last Admin Trade Name Freq PRN Reason Stop Dose Admin Artificial Tears 1 drop 08/08/23 03:13 Artificial Tears Ophth Soln 15 Ml Bottle EACH EYE QID PRN Dry Eye(s) Aspirin 81 mg 08/08/23 09:00 08/08/23 08:35 Aspirin 81 Mg Enteric Tablet PO 81 mg QAM RADHA Administration Heparin Sodium (Porcine) 4,000 units 08/07/23 20:14 Heparin Sodium 5,000 Units/Ml Vial IV PUSH PRN PRN aPTT less than 55 seconds Heparin Sodium (Porcine) 3,000 units 08/07/23 20:14 08/08/23 10:31 Heparin Sodium 5,000 Units/Ml Vial IV PUSH 3,000 units PRN PRN Administration aPTT 55 - 70 seconds Heparin Sodium/Dextrose 25,000 units in 250
[2023-08-08 17:06] LABS: Partial Thromboplastin Time 89.9 Seconds (22.3-36.8)
[2023-08-08] MEDS: HEPARIN SOD/D5W 100 UNITS/ML 25,000 UNITS/250 ML BAG 12 UNITS IV CONT (19:15)
--- NOTE | 2023-08-08 21:47 | PC.NURSE ---
pt c/o roomate noisey [id number] requests another room from the charge nurse
[2023-08-09] VITALS (14 sets, daily range): BP systolic 114–134; BP diastolic 51–88; PULSE 47–80; RESP 16–20; TEMP 36.1–36.6; O2SAT 95–99
[2023-08-09 04:17] LABS: Hematocrit 42.1 % (42.0-52.0); Hemoglobin 13.7 g/dL (14.0-18.0); Mean Corpuscular HGB Conc 32.5 g/dl (32-36); Mean Corpuscular Hemoglobin 29.8 pg (26-34); Mean Corpuscular Volume 91.7 fl (80-100); Platelet Count Result 198 k/mm3 (150-375); Red Blood Count 4.59 M/mm3 (4.6-6.20); Red Cell Distribution Width 12.8 % (11.5-14.5); White Blood Count 5.2 K/mm3 (4.5-10.0)
[2023-08-09 04:30] LABS: Partial Thromboplastin Time 90.3 Seconds (22.3-36.8)
[2023-08-09 04:32] LABS: Alanine Aminotransferase 13 U/L (6-50); Alkaline Phosphatase 73 U/L (38-126); Anion Gap 4 mmol/L (4-12); Aspartate Amino Transferase 19 U/L (17-59); Bilirubin,Total 0.6 mg/dL (0.2-1.3); Blood Urea Nitrogen 12 mg/dL (9-20); Calcium 8.9 mg/dL (8.4-10.2); Carbon Dioxide 30 mmol/L (22-30); Chloride 104 mmol/L (98-107); Estimated CRCL calculation 69 ml/min; Estimated Glomerular Filt Rate > 60; Glucose 99 mg/dL (65-110); Potassium 3.6 mmol/L (3.4-5.0); Sodium 138 mmol/L (137-145)
--- NOTE | 2023-08-09 08:38 | WPDMODSED ---
Moderate Sedation Note-Pt Data Patient Data Diagnosis: Unstable angina, coronary artery disease Present Complaint: Unstable angina Procedure to be performed/Plan: Coronary angiography, left heart cath, +/- PCI Allergies Allergy/AdvReac Type Severity Reaction Status Date / Time diazepam [From Valium] AdvReac Severe Other Verified 08/07/23 21:40 Home Medications Medication Instructions Recorded Confirmed Type omeprazole 20 mg capsule,delayed 20 mg PO DAILY PRN Heartburn 08/07/23 08/07/23 History release Current Medications: Active Medications Artificial Tears (Artificial Tears Ophth Soln 15 Ml Bottle) 1 drop EACH EYE QID PRN PRN Reason: Dry Eye(s) Aspirin (Aspirin 81 Mg Enteric Tablet) 81 mg PO QAM [facility] Last Admin: 08/08/23 08:35 Dose: 81 mg Heparin Sodium (Porcine) (Heparin Sodium 5,000 Units/Ml Vial) 4,000 units IV PUSH PRN PRN PRN Reason: aPTT less than 55 seconds Heparin Sodium (Porcine) (Heparin Sodium 5,000 Units/Ml Vial) 3,000 units IV PUSH PRN PRN PRN Reason: aPTT 55 - 70 seconds Last Admin: 08/08/23 10:31 Dose: 3,000 units Heparin Sodium/Dextrose (Heparin Sodium/D5w 100 Units/Ml) 25,000 units in 250 mls @ 12 mls/hr IV CONT .[id number] [facility]; Protocol Last Titration: 08/09/23 04:51 Dose: 1,200 units/hr, 12 mls/hr Pantoprazole Sodium (Pantoprazole 40 Mg Tablet) 40 mg PO DAILY PRN PRN Reason: Heartburn Pantoprazole Sodium (Pantoprazole Sodium Iv 40 Mg Vial) [facility] [place] Admin: 08/08/23 08:35 Dose: 40 mg Perflutren Lipid Microsphere (Perflutren Lipid Microspheres 1.5 Ml Vial Diluted To 10 Ml Total Volume) 0 ml IV PUSH ONCE PRN; Protocol PRN Reason: adequate visualization Stop: 08/11/23 09:53 Sedation/Anesthesia: No previous sedation/anesthesia problems (including family history). [facility] Past Medical History Medical History BPH (benign prostatic hyperplasia) GERD (gastroesophageal reflux disease) History of right inguinal hernia HTN (hypertension) Hyperlipidemia Surgical History Surgical History H/O arthroscopic knee surgery Bilateral meniscus repair History of umbilical hernia repair S/P TURP Family History Family History Grandparent Acute myocardial infarction Social History Social History Social History: Patient lives with his of over 50 years. He denies any history of tobacco, alcohol or illicit substance use. 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 Code status: Full code Surrogate decision maker: Smoking status: Never smoker Alcohol intake: never Substance use: never Substance use type: does not use Do You Feel Safe in your Home?: Yes Lack of Transportation: No Lack of Food: Never True Current Housing: I Have Housing Concerned About Future Housing: No Difficulty Paying Gas/Electric Bills: No Difficulty Paying for Meds: No Currently Unemployed: No Education: Decline to Answer Difficulty w/ Childcare or Family Care: No Spiritual care concerns: No Mod Sed Physical Exam Physical Exam Pre Procedural Exam: Normal: Appearance, Lungs, Heart Rate, Heart Rhythm, Neuro Exam, Abdomen, Extremities and Skin Hours since solid foods: 12 Hours since liquid intake: 8 Mallampati Classification: class III Internal Medicine - PN: Obj Da Vital Signs Vital Signs: Vital Signs - 24 hr 08/08/23 10:00 08/08/23 11:35 08/08/23 11:45 Temperature 36.6 C Pulse Rate 59 L 78 67 Respiratory Rate 18 Blood Pressure 147/73 H Pulse Oximetry 97 Oxygen Delivery 08/08/23 14:30 08/08/23 16:00 08/08/23 16:00 Temperature 37.0 C Pulse Rate 82 64 60 Respiratory Rate 18 Blood Pressure 121/54 L Pulse Oximetry 96 Oxygen Delivery 08/08/23 19:46 08/08/23 20:00 08/08/23 20:00 Temperature
[2023-08-09] MEDS: PANTOPRAZOLE SODIUM IV 40 MG VIAL IV PUSH (08:46)
[2023-08-09] MEDS: ASPIRIN 81 MG ENTERIC TABLET PO (08:46)
--- NOTE | 2023-08-09 09:48 | WPDCARDPROC ---
Cardiac Cath Procedure Note Date of procedure:: 08/09/23 Performing physician:: CATHETERIZATION LABORATORY REPORT Procedure Date: 08/09/2023 Construction Technology Instructor: Katelynn Jama M.D., [facility]? Referring Physician: Scooby Osei M.D. ? Anesthesia: Versed and Fentanyl were ordered and given in my presence at 09:24, procedure ended at 09:42. Supervision of nurse monitored moderate sedation with Versed and Fentanyl was provided for 18 minutes. Total of Versed 1mg and Fentanyl 50mcg were administered by the Glassware Maker RN Gabriela Wyatt. Pre-op Diagnosis: Coronary artery disease Post-op Diagnosis: 1. Multivessel coronary artery disease 2. Left ventricular end-diastolic pressure of 17mmHg Procedure(s): 1. Moderate sedation 2. Ultrasound-guided access of the right radial artery 3. Coronary angiography 4. Left heart catheterization Access Site: Right radial artery Brief History and Clinical Indications: Patient is a 78 year old male with hypertension, hyperlipidemia who is referred for [facility] for angina. All risks, benefits and alternatives to left heart catheterization with or without percutaneous coronary intervention was discussed at length with the patient. Risk of complications including but not limited to bleeding, infection, arrhythmia, stroke, worsening kidney function, blood loss, groin hematoma, limb loss, emergency coronary artery bypass grafting, and even were discussed with the patient and all questions were answered. The patient understood and wished to proceed. Time out called, patient name, date of , medical record number, allergies, procedure performed, identify Construction Technology Instructor, patient and staff member concurred with accurate data, procedure carried on. Findings: LEFT HEART CATHETERIZATION FINDINGS: 1. Left main: The distal left main has an angiographic 40% stenosis. 2. Left anterior descending: The proximal-mid LAD has heavy diffuse calcifications. The proximal LAD has diffuse mild disease followed by a 70% calcific stenosis at the level of the first septal branch. The mid LAD has diffuse mild disease. The first diagonal branch has mild disease without any obstructive disease. 3. Left circumflex: The proximal LCX has mild disease. At the bifurcation of OM-1 and OM-2, there is a significant 80-90% stenosis. 4. Right coronary artery: The RCA is the dominant vessel. The proximal RCA has a 99% stenosis. Remainder of the RCA has diffuse mild disease. 5. Left ventricle: A. End-diastolic pressure 17 mmHg. B. LV gram deferred. C. No significant gradient across aortic valve on catheter pullback. Description of Procedure: Informed consent signed and placed in the chart. Patient transferred to laboratory scientist room. Prepped and draped in usual sterile fashion. 2% lidocaine injected subcutaneously in right wrist area. 22-gauge venipuncture catheter used to access the right radial artery under ultrasound guidance. 6-FR slender sheath placed in right radial artery. Nitroglycerine and Verapamil were given intraarterial through the sheath. Versacore wire advanced under fluoroscopy 5F Tig 4 diagnostic catheter engaged Left Main Coronary Artery. 5F Tig 4 diagnostic catheter kept engaging in the conus branch, therefore, 5F FR 4 diagnostic catheter engaged Right Coronary Artery Multiple orthogonal angiogram obtained and reviewed 5F Tig 4 diagnostic catheter crossed aortic valve to obtain LVEDP, LV angiogram deferred. Hemostasis was achieved by application of TR band. Post Operative Condition: Stable No significant blood loss Disposition: Floor Plan: The patient will be monitored in the recovery area. The above findings were discussed with the referring physician. Continue aggressive medical therapy and risk factor modification. Katelynn Jama M.D. Interventional Cardiology
--- NOTE | 2023-08-09 10:01 | PM.PNCARD ---
Progress Note: A&P Assessment and Plan (1) Angina of effort: Code(s): I20.89 - Other forms of angina pectoris Status: Acute Assessment and Plan: 78-year-old man with recent onset of exertional chest pain syndrome suggestive of angina. Resting echocardiogram with LVEF 50-55%, posterior hypokinesia. Exercise stress echo is abnormal. Electrocardiographic abnormalities are relatively modest however echocardiographic images are certainly concerning for multivessel disease. LHC shows multivessel coronary artery disease. Recommend CT Surgery evaluation for consideration of CABG. Discussed recommendations with the patient, and he is agreeable to see CTS. As patient is stable without any resting angina, I do not believe he needs inpatient transfer to a tertiary center for CTS eval. Will arrange for outpatient CTS evaluation at [facility]. Continue ASA 81mg once daily. Will start high-intensity statin. Start Imdur 60mg once daily for antianginal relief. Will not start beta blockers given resting heart rates already in the 50s. PRN SL NTG as well. (2) HTN (hypertension): Code(s): I10 - Essential (primary) hypertension Status: Acute Assessment and Plan: Blood pressure controlled. Not on medications at home. (3) Hyperlipidemia: Qualifiers: Hyperlipidemia type: unspecified Qualified Code(s): E78.5 - Hyperlipidemia, unspecified Code(s): E78.5 - Hyperlipidemia, unspecified Status: Acute Assessment and Plan: LDL is 130. Will start high intensity statin. Plan Okay for discharge later today once patient has recovered from post-cath bed rest. Will arrange close follow up in our office, along with outpatient CT Surgery appointment. Recommendations and plan discussed with Hospitalist. Subjective Date/time seen: 08/09/23 10:01 Interval history: Reason for visit: Chest pain HPI: This is a 78-year-old man I am seeing at the request of the hospitalist because of chest pain. He came to the emergency room last evening and was admitted to the hospital for evaluation. He is describing the onset of symptoms about 3 weeks ago where have intermittent episodes of central chest pressure that radiates into the shoulders bilaterally. This symptom occurs both with and without exertion. The patient provided a history of exertional chest pain to the emergency room physician. He tells me at this point that this symptoms can sometimes occur at home while he is at rest. In any event following admission his electrocardiograms looked normal as to his troponin levels and in this setting I am seeing him in consultation. He does have a history of hypertension and dyslipidemia. He was taking losartan for his blood pressure but has been noncompliant in continuing it. His physician has not yet recommended any medical anti lipid therapy. He has no history of diabetes smoking or family history of premature ischemic heart disease. He is denying any symptoms of orthopnea PND edema palpitations or syncope. 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 Date of service 08/08: No chest pain. [facility] today. Review of Systems Review of Systems: All systems reviewed & are unremarkable except as noted in HPI and below (HPI) Exam Const: General: comfortable and no acute distress HENMT: Mouth: Yes moist mucous membranes Eyes: General: appearance normal, both eyes and all related structures Sclera: sclerae normal Resp: Effort & Inspection: normal respiratory effort Cardio: Rate: regular rate Rhythm: regular rhythm Skin: General skin exam: normal color Neuro: Speech: normal speech Psych: Mental Status: mental status grossly normal Affect: normal affect Objective Data Vital Signs Vital Signs: Vital Signs - 24 hr 08/08/23 11:35 08/08/23 11:45 08/08/23 14:30 Temperature 36.6 C Pulse Rate 78 67 82 Respiratory Rate 18 Blood Pressure 147/73 H Pulse Oximetry 97 Oxygen Delivery 07/16
[2023-08-09 10:15] LABS: Hemoglobin A1C 5.9 % (<5.7)
--- NOTE | 2023-08-09 10:21 | PC.NURSE ---
[id number]- to cardiac nursery laborer for procedure via bed accompanied by ISA
[2023-08-09] MEDS: ONDANSETRON INJ 4 MG/2 ML VIAL IV PUSH (10:32)
[2023-08-09] MEDS: SODIUM CHLORIDE 0.9% IV 1,000 ML 125 ML IV CONT (12:17)
--- NOTE | 2023-08-09 12:22 | SUR.PHASEII ---
Attempted to give updated report, RN unavailable at this time.
[2023-08-09] MEDS: ISOSORBIDE MONONITRATE 60 MG TAB.ER.24H PO (13:17)
[2023-08-09] MEDS: ATORVASTATIN 40 MG TABLET 80 MG PO (13:19)
--- NOTE | 2023-08-09 13:35 | PC.NURSE ---
1245 @1230 pt returned to room - post procedure- IVF NS @ 125 cc/hr infusing, VSS- BP stable- right radial site with gauze dressing/tegaderm intact- no bleeding noted. armboard in place- pt sitting up in bed- eating ,lunch- no c/o pain
--- NOTE | 2023-08-09 14:52 | PM.DS ---
DS: Admitting Diagnosis Discharge Date 08/09/2023 Admitting Diagnosis Chest Pain DS: Discharge Diagnosis Discharge Diagnosis (1) Angina of effort: Code(s): I20.89 - Other forms of angina pectoris Status: Acute (2) Hyperlipidemia: Qualifiers: Hyperlipidemia type: unspecified Qualified Code(s): E78.5 - Hyperlipidemia, unspecified Code(s): E78.5 - Hyperlipidemia, unspecified Status: Acute (3) Itchy eyes: Code(s): H57.9 - Unspecified disorder of eye and adnexa Status: Acute Plan Patient is having anginal-type chest pain with minimal exertion. He has been having escalating symptoms over the week that is concerning. Troponins were negative foot given the escalating nature the patient's symptoms will request Cardiology consult for further recommendations. Patient did receive full-dose aspirin and was started on heparin drip in the ER. Lipid panel has been ordered. Will start patient on a baby aspirin a day. Patient is worried about his thyroid function I did educate the patient that itching eyes does not equal a sign of thyroid dysfunction but will check TSH with reflex T4. I suspect the patient actually has some component of chronic dry eye and were itching due to allergy. Will provide patient with artificial tears. DS: Summary Hospital Course Reason for hospitalization: Chest pain/angina Hospital Course: Admission: Medical Chart Chief Complaint: Chest heaviness Narrative: 78-year-old male with past medical history of essential BPH, hypertension, hyperlipidemia and GERD who presented to the ER with chest heaviness that radiated to his shoulders and down his arms. The patient reports that for the last week he has been having intermittent chest discomfort that is been escalating in intensity. He reports that his most recent episode was a 7/10 in intensity and lasted for 2-3 minutes. It occurred while he was slowly walking to the store. The pain improves with rest. He did have some associated diaphoresis and nausea. He denies any cough, congestion, orthopnea, paroxysmal nocturnal dyspnea. He does have a history of hyperlipidemia for which he has not taken medications since diagnosis. He also reports history of hypertension but has never been on antihypertensive. He occasionally will have GERD for which he takes vucs-dss-gbuelok omeprazole. He has not had a recurrence of chest pain since coming to the ER. His initial troponin was negative and is repeat troponin doubled from baseline but was still within the negative reference range. Given the concerning nature of patient's symptoms and escalating nature patient was admitted for his anginal chest pain. EKG was negative for evidence of ischemia. Patient was started on heparin drip in ER and received full-dose aspirin. He reports that he is active on a day-to-day basis but does not particularly exercise. He does report that his eyes have been itching and he was concerned that the itching in his eyes could be due to hyperthyroidism. 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 He denies burning in his eyes. He denies having seasonal allergies 08/07: Assumed care Follow-up assessment patient denied any further chest pain at rest however still had chest pressure with exertion but troponins negative x 3. Due to patient quality of symptoms it was recommended by cardiology for coronary angiogram. I ordered a echo to evaluate valves and for wall motion. Patient at this time requested a non-invasive ischemic testing be performed prior, so a stress test was performed, stress echo did show ST depression and T-wave inversion with images demonstrating ischemia of the lateral segment and anteroseptal. 08/08: DISCHARGED Patient underwent coronary angiogram the showed multivessel disease, not stents placed during procedure recommendation from cardiology was O/P CT surgery evaluat
--- NOTE | 2023-08-09 15:49 | PC.NURSE ---
1515-discussed discharge instructions with pt and - and care of right radial site ; armboard in place- both verbalized understanding of all discharge instructions
== END 2023-08-09 15:40 | disposition home or self-care (01) | DRG 287 ==
LOC: ANHED 20:23 → ANHIMU 08-08 00:09
PROVIDERS: Emergency Medicine; Internal Medicine; Specialist; Admitting Provider Internal Medicine; Emergency Provider Emergency Medicine; Visit Provider Nurse Practitioner Family
PROC: 4A023N7 Measurement of Cardiac Sampling and Pressure, Left Heart, Percutaneous Approach (ICD-10-PCS; CPT 93452; principal; 2023-08-09 08:45)
DX: I25.118 Atherosclerotic heart disease of native coronary artery with other forms of angina pectoris (principal); I10 Essential (primary) hypertension; E78.5 Hyperlipidemia, unspecified; N40.0 Benign prostatic hyperplasia without lower urinary tract symptoms; K21.9 Gastro-esophageal reflux disease without esophagitis; H57.89 Other specified disorders of eye and adnexa
CPT/HCPCS: 36415; 71046; 80053; 80061; 83036; 83690; 83880; 84443; 84484; 85025; 85027; 85380; 85610; 85730; 93005; 93351; 93458; 99285; A9270; C1769; C1887; C1894; C8929; C9113; J1644; J2250; J2305; J2405; J3010; J7030; J7040; Q9957

== ENCOUNTER 2023-09-01 08:22 | Emergency (ER) | payer MEDICARE, SELFPAY ==
[2023-09-01] VITALS (12 sets, daily range): BP systolic 102–145; BP diastolic 62–87; PULSE 63–83; RESP 14–20; TEMP 36.6; O2SAT 98–100
--- NOTE | ~2023-09-01 | XR_ITS ---
Clinical Indication: Hematuria, chest pain PA and lateral views of the chest: Comparison: 08/07/2023 Findings: Stable calcified right granuloma. The lungs are otherwise clear, without evidence of focal consolidation or pleural effusion. Cardiomediastinal silhouette is within normal limits. Bones and s oft tissues are unremarkable. Impression: No acute abnormality. Reviewed, dictated and finalized at location . Impression: No acute abnormality.
--- NOTE | 2023-09-01 08:23 | ECG_ITS ---
Test Date: 2023-09-01 08:32:15 Measurements Intervals [place] Rate: 71 P: 180 OK: 282 QRS: -21 QRSD: 106 T: -43 QT: 397 QTc: 434 Interpretive Statements SINUS RHYTHM INFERIOR INFARCT, PROBABLY RECENT BASELINE ARTIFACT- I, II, AVR, AVL, AVF, V1-V6 ABNORMAL ECG Compared to ECG 08/07/2023 18:46:25 HEART RATE HAS INCREASED Myocardial infarct finding now present Electronically Signed On 09-01-2023 16:22:08 CDT by Hiram Kiran D.O.
[2023-09-01 08:43] LABS: Basophils Absolute Auto 0.1 K/mm3 (0.0-0.1); Basophils Percent Auto 1.1 % (0.2-1.2); Eosinophils Absolute Auto 0.2 K/mm3 (0-0.3); Eosinophils Percent Auto 3.6 % (0-4.4); Hemoglobin 14.3 g/dL (14.0-18.0); Immature Granulocyte Absolute 0.01 K/mm3 (0.00-0.031); Immature Granulocyte Percent A 0.2 % (0-0.5); Lymphocytes Absolute Auto 1.78 K/mm3 (0.9-3.2); Lymphocytes Percent Auto 31.9 % (18.3-44.2); Mean Corpuscular HGB Conc 32.5 g/dl (32-36); Mean Corpuscular Hemoglobin 29.9 pg (26-34); Mean Corpuscular Volume 91.9 fl (80-100); Mean Platelet Volume 9.7 fl (7.4-10.4); Monocytes Absolute Auto 0.5 K/mm3 (0.1-0.6); Monocytes Percent Auto 9.1 % (2.6-8.5); Neutrophils Percent Auto 54.1 % (45.5-73.1); Platelet Count Result 279 k/mm3 (150-375); Red Blood Count 4.79 M/mm3 (4.6-6.20); Red Cell Distribution Width 13.3 % (11.5-14.5); White Blood Count 5.6 K/mm3 (4.5-10.0)
[2023-09-01 08:56] LABS: Alanine Aminotransferase 15 U/L (6-50); Albumin Level 4.4 g/dL (3.5-5.1); Alkaline Phosphatase 91 U/L (38-126); Anion Gap 9 mmol/L (4-12); Aspartate Amino Transferase 21 U/L (17-59); Bilirubin,Total 0.6 mg/dL (0.2-1.3); Blood Urea Nitrogen 8 mg/dL (9-20); Calcium 8.7 mg/dL (8.4-10.2); Carbon Dioxide 28 mmol/L (22-30); Chloride 102 mmol/L (98-107); Estimated CRCL calculation 68 ml/min; Estimated Glomerular Filt Rate > 60; Glucose 103 mg/dL (65-110); Lipase 89 U/L (23-300); Potassium 3.8 mmol/L (3.4-5.0); Sodium 139 mmol/L (137-145)
[2023-09-01] MEDS: ASPIRIN 81 MG CHEWABLE TABLET 324 MG PO (09:01)
[2023-09-01 09:11] LABS: Troponin I 0.106 ng/mL (0.000-0.034)
[2023-09-01 09:15] LABS: INR 1.1; Partial Thromboplastin Time 28.2 Seconds (22.3-36.8); Prothrombin Time 14.5 Seconds (11.1-14.7)
--- NOTE | 2023-09-01 09:52 | ED.CHESTPAIN ---
HPI - Chest Pain General Chief Complaint: Chest Pain Stated Complaint: cp Time Seen by Provider: 09/01/23 09:20 Source: patient and family () Mode of arrival: ambulatory Limitations: no limitations History of Present Illness HPI narrative: Patient presents with midsternal chest pain starting this morning when he woke up. Describes it as a tightness, non radiating, 2 out of 10 in severity. He has had a cough occasionally productive of phelgm. Denies lower extremity edema. No shortness of breath. Typically takes isosorbide at 8am but not yet taken today. Had a GA approximately 07/31/23. Reports having 2 angiograms performed and placement of 1 cardiac stent. Cardiac rehab and discussion of bypass currently in process with providers at [facility]. Patient requesting to go to [facility]. He is also having hematuria. He has a PCP/[facility] hospital follow up Tuesday. History of prostate resection 10-15 years ago in [facility]. He was having pain with urination that resolved and now is intermittently occuring. Denies being on tamsulosin. Is on 81mg ASA (usually takes at 8am, not yet taken today) and Plavix (last dose 12noon yesterday). Related Data Home Medications Medication Instructions Recorded Confirmed omeprazole 20 mg capsule,delayed 20 mg PO DAILY PRN Heartburn 08/07/23 08/07/23 release clopidogrel 75 mg tablet mg 09/01/23 Allergies Allergy/AdvReac Type Severity Reaction Status Date / Time diazepam [From Valium] AdvReac Severe Other Verified 09/01/23 09:14 [facility] Past Medical History Medical History BPH (benign prostatic hyperplasia) GERD (gastroesophageal reflux disease) History of right inguinal hernia HTN (hypertension) Hyperlipidemia Surgical History Surgical History (Updated 09/04/23 @ 23:47 by Mónica Rios MD) H/O arthroscopic knee surgery Bilateral meniscus repair H/O heart artery stent History of umbilical hernia repair S/P TURP between 2008 and 2013; [place], [place] Family History Family History Grandparent Acute myocardial infarction Social History Social History Social History: Patient lives with his of over 50 years. He denies any history of tobacco, alcohol or illicit substance use. 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 Code status: Full code Surrogate decision maker: Smoking status: Never smoker Alcohol intake: never Substance use: never Substance use type: does not use Do You Feel Safe in your Home?: Yes Lack of Transportation: No Lack of Food: Never True Current Housing: I Have Housing Concerned About Future Housing: No Difficulty Paying Gas/Electric Bills: No Difficulty Paying for Meds: No Currently Unemployed: No Education: Decline to Answer Difficulty w/ Childcare or Family Care: No Spiritual care concerns: No Exam Narrative: GENERAL: Well-appearing, well-nourished, and in no acute distress. HEAD: Normocephalic, atraumatic. EYES: Non injected, non icteric ENT: Nares clear, no rhinorrhea or epistaxis. NECK: Supple. CHEST: Speaking in full sentences. No respiratory distress. HEART: Regular rate and rhythm. . ABDOMEN: Soft, nondistended. : Hematuria in urinal at bedside EXTREMITIES: Normal range of motion. No edema. SKIN: Warm, dry, no rash. NEURO: No focal deficits. Alert and oriented x3. Course Vital Signs Vital signs: Vital Signs Temperature 97.8 F 09/01/23 08:25 Pulse Rate 73 09/01/23 08:25 Respiratory Rate 19 09/01/23 08:25 Blood Pressure 123/71 09/01/23 08:25 Pulse Oximetry 100 09/01/23 08:25 Oxygen Delivery Room Air 09/01/23 08:25 Temperature 97.8 F 09/01/23 08:25 Pulse Rate 80 09/01/23 12:30 Respiratory Rate 16 09/01/23 12:30 Blood Pressure 125/77 09/01/23 12:30 Pulse Oxim
[2023-09-01 09:53] LABS: Bacteria Urine 2+ /hpf; Need Manual Microscopic Reviewed; Non Pathogenic Casts 0-2; RBC Urine >100 /hpf (0-2); Squamous Epithelial Cell Urine None Seen /hpf (Few); WBC Urine >100 /hpf (0-3)
[2023-09-01 09:54] LABS: Appearance Urine Turbid (Clear); Bilirubin Urine 1+ (Negative); Blood Urine 3+ (Negative); Color Urine Red (Yellow); Glucose Urine UA Negative (Negative); Ketones Urine Negative (Negative); Leukocyte Esterase Ur 3+ LEU/UL (Negative); Nitrate Urine Negative (Negative); Protein Urine 2+ mg/dL (Negative); Specific Grav Ur 1.017 (1.001-1.035); pH Urine 5.5 (5.0-9.0)
[2023-09-01 09:56] LABS: Add Urine Microscopic? YES
[2023-09-01 10:46] LABS: NT Pro B Type Natriuretic Pept 1540 pg/mL (19.9-100)
[2023-09-01] MEDS: FUROSEMIDE INJ 40 MG/4 ML VIAL IV PUSH (11:30)
--- NOTE | 2023-09-01 11:50 | ECG_ITS ---
Test Date: 2023-09-01 12:00:27 Measurements Intervals [place] Rate: 68 P: 43 MA: 162 QRS: -17 QRSD: 99 T: -49 QT: 389 QTc: 415 Interpretive Statements SINUS RHYTHM INFERIOR INFARCT, PROBABLY RECENT BASELINE ARTIFACT- I, II, AVR, AVL, AVF, V1-V6 ABNORMAL ECG Compared to ECG 09/01/2023 08:32:15 No significant changes Electronically Signed On 09-01-2023 16:25:10 CDT by Hiram Kiran D.O.
== END 2023-09-01 12:30 | disposition left against medical advice (07) ==
PROVIDERS: Emergency Provider Student in an Organized Health Care Education/Training Program
DX: I21.4 Non-ST elevation (NSTEMI) myocardial infarction (principal); I11.0 Hypertensive heart disease with heart failure; I50.9 Heart failure, unspecified; N39.0 Urinary tract infection, site not specified; R07.2 Precordial pain; E78.5 Hyperlipidemia, unspecified; N40.0 Benign prostatic hyperplasia without lower urinary tract symptoms; K21.9 Gastro-esophageal reflux disease without esophagitis; Z95.5 Presence of coronary angioplasty implant and graft; Z90.79 Acquired absence of other genital organ(s)
CPT/HCPCS: 36415; 71046; 80053; 81001; 83690; 83880; 84484; 85025; 85610; 85730; 87077; 87086; 87088; 87181; 93005; 96365; 96375; 99284; A9270; J0696; J1940

== ENCOUNTER 2024-11-23 20:35 | Emergency (ER) | payer MEDICARE, SELFPAY ==
[2024-11-23] VITALS (15 sets, daily range): BP systolic 119–137; BP diastolic 65–80; PULSE 73; RESP 18; TEMP 36.8; O2SAT 92–98
[2024-11-23 21:27] LABS: Appearance Urine Turbid (Clear)
[2024-11-23 21:28] LABS: Glucose Urine UA Negative (Negative); Specific Grav Ur 1.010 (1.001-1.035)
[2024-11-23 21:32] LABS: Add Urine Microscopic? YES
--- NOTE | 2024-11-23 23:06 | ED_ITS ---
HPI - Male Genitourinary General Chief complaint: Urogenital-Male Stated complaint: hematuria Time Seen by Provider: 11/23/24 22:57 Source: patient Mode of arrival: ambulatory Limitations: no limitations History of Present Illness HPI Narrative: Patient is a 79-year-old male presents to the emergency department complaining of UTI. Patient notes this evening around 8:00 a.m. the started has some burning when he urinates, blood tinge to his urine, admits to chronic urgency and frequency has a benign change. Patient notes he has a history of some prostate issues. Patient admits see a urologist. Patient is to history urinary tract infections and sometimes present in denies any history of drug-resistant bacteria using gets Keflex and gets better. Patient denies any fever, abdominal pain, history kidney stones, back pain, chest pain, difficulty breathing, nausea, vomiting, diarrhea, recent injuries, recent illness. Patient denies use of blood thinners. Related Data Home Medications ?Medication ?Instructions ?Recorded ?Confirmed ?Last Taken ?Type omeprazole 20 mg capsule,delayed 20 mg PO DAILY PRN He artburn 08/07/23 08/07/23 Unknown History release clopidogrel 75 mg tablet mg 09/01/23 Unknown History Allergies Allergy/AdvReac Type Severity Reaction Status Date / Time diazepam (From Valium) AdvReac Severe Other Verified 09/01/23 09:14 Review of Systems 2 Review of Systems: A 10 system review of systems was completed on the patient and is negative except for what is stated in the HPI. Nursing and ancillary documentation was reviewed. [facility] Past Medical History Medical History (Updated 11/24/24 @ 00:15 by Hermes Turcios DO) History of right inguinal hernia Hyperlipidemia GERD (gastroesophageal reflux disease) HTN (hypertension) BPH (benign prostatic hyperplasia) Surgical History Surgical History (Updated 09/04/23 @ 23:47 by Mónica Rios MD) H/O heart artery stent History of umbilical hernia repair S/P TURP between 2008 and 2013; [place], [place] H/O arthroscopic knee surgery Bilateral meniscus repair Family History Family History Grandparent Acute myocardial infarction Social History Social History Social History: Patient lives with his of over 50 years. He denies any history of tobacco, alcohol or illicit substance use. 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 Code status: Full code Surrogate decision maker: Smoking status: Never smoker Alcohol intake: never Substance use: never Substance use type: does not use Do You Feel Safe in your Home?: Yes Lack of Transportation: No Lack of Food: Never True Current Housing: I Have Housing Concerned About Future Housing: No Difficulty Paying Gas/Electric Bills: No Difficulty Paying for Meds: No Currently Unemployed: No Education: Decline to Answer Difficulty w/ Childcare or Family Care: No Spiritual care concerns: No Exam 2 Narrative: CONST: No acute distress. Well nourished. Patient is watching a movie on Youtube. HENMT: Head is normocephalic and atraumatic. Moist mucous membranes. No posterior oropharynx erythema. EYES: No scleral icterus. No conjunctival injection or pallor. PERRL. NECK: No meningeal signs. RESP: Able to speak in full sentences. Normal respiratory effort. CTAB. CARDIO: Regular rate. Regular rhythm. 2+ DP and radial pulses bilaterally. GI: Nondistended. No tenderness to palpation. Soft. : No CVA tenderness to palpation. SKIN: No rashes or lesions noted on exposed skin. NEURO: Oriented x3. Moves all extremities. EXTREM/MSK/BACK: No pedal edema. PSYCH: Normal affect. Course Vital Signs Vital signs: Vital Signs Temperature 98.2 F 11/23/24 20:38 Pulse Rate 73 11/23/24 20:38 Respiratory Rate 18 11/23/24 20:38 Blood Pressure 137/70 11/23/24 20:38 Pulse Oximetry 97 11/23/24 20:38 Oxygen Delivery Room Air 11/23/24 20:38 Temperature 98.2 F 11/23/24 20:38 Pulse Rate 73 11/23/24 20:38 Respiratory Rate 18 11/23/24 20:38 Blood Pressure 119/70 11/23/24 21:00 Pulse Oximetry 98 11/23/24 23:15 Oxygen Delivery Room Air 11/23/24 20:38 MDM - Male Genitourinary MDM Narrative Medical decision making narrative: Patient presents with the above complaint. Initial vitals are remarkable for no significant abnormalities. Physical examination as noted above. Differential diagnosis includes was not limited to: UTI, ureterolithiasis, prostatitis Plan discussed: Laboratory analysis. Patient is not having abdominal pain, flank pain, back pain, fever, nausea, vomiting, any signs of systemic illness, is not on any blood thinners. Discussed plan patient to do strict return precautions and likely antibiotics for UTI if he develops any pain, fever, nausea, vomiting, difficulty urinating, or any other concerns he is to come back to the emergency department for further evaluation as he would likely benefit from CT imaging at that point. Discussed plan to have patient follow-up with a Urologist as he has not done so in the past. Patient demonstrates understanding and agreement plan of care. CBC reveals a hemoglobin of 13.4. Comprehensive metabolic panel reveals a sodium 136. Total creatine kinase is 156. Urinalysis shows a red color, turbid appearance, 3+ protein, 3+ blood, greater than 100 RBCs, 4-6 wbc's, trace bacteria. Prior urine culture on file shows skaggs susceptibility. Patient has been ordered ceftriaxone. Patient was reassessed at the bedside. No changes in physical exam. Patient is in no acute distress. The patient has remained stable throughout the entire ED visit. Counseled patient regarding diagnostic results and potential diagnosis. Anticipatory guidance provided. Patient instructed to follow up with Urology and primary care physician in the next 2-3 days. Patient counseled on: false reassurance from an emergency department evaluation; no current evidence of a medical emergency; return immediately for any new, recurrent, worsening, concerning, or refractory symptoms. Patient prescribed Keflex. Prescription sent to preferred pharmacy. Medications discussed with patient. Additional verbal and printed discharge instructions were given and discussed with the patient. Patient verbally acknowledges understanding of condition and discharge instructions. All questions were answered to the patient's satisfaction. Patient is in agreement with the plan of care. The patient is stable for discharge and was discharged without incident. Lab Data 11/23/24 23:24 11/23/24 23:24 Labs: Lab Results 11/23/24 11/23/24 Range/Units 20:40 23:24 WBC 4.9 (4.5-10.0) K/mm3 RBC 4.45 L (4.6-6.20) M/mm3 Hgb 13.4 L (14.0-18.0) g/dL Hct 40.9 L (42.0-52.0) % MCV 91.9 (80-100) fl MCH 30.1 (26-34) pg MCHC 32.8 (32-36) g/dl RDW 12.9 (11.5-14.5) % Plt Count 199 (150-375) k/mm3 MPV 9.3 (7.4-10.4) fl Immature Gran % (Auto) 0.2 (0-0.5) % Neut % (Auto) 50.0 (45.5-73.1) % Lymph % (Auto) 33.1 (18.3-44.2) % [place] % (Auto) 12.4 H (2.6-8.5) % Eos % (Auto) 3.3 (0-4.4) % Baso % (Auto) 1.0 (0.2-1.2) % Lymph # (Auto) 1.63 (0.9-3.2) K/mm3 [place] # (Auto) 0.6 (0.1-0.6) K/mm3 Eos # (Auto) 0.2 (0-0.3) K/mm3 Baso # (Auto) 0.1 (0.0-0.1) K/mm3 Abs Immat Gran (auto) 0.01 (0.00-0.031) K/mm3 Absolute Neuts (auto) 2.5 (1.3-6.7) K/mm3 Absolute Nucleated RBC 0.000 (0.0-0.012) K/mm3 Nucleated RBC % 0.0 (0.0-0.2) % PT 13.5 (11.1-14.7) Seconds INR 1.0 APTT 25.9 (22.3-36.8) Seconds Sodium 136 L (137-145) mmol/L Potassium 4.0 (3.4-5.0) mmol/L Chloride 101 (98-107) mmol/L Carbon Dioxide 30 (22-30) mmol/L Anion Gap 5 (4-12) mmol/L BUN 18 D (9-20) mg/dL Creatinine 0.86 (0.7-1.3) mg/dL Estim Creat Clear Calc 72 ml/min Estimated GFR > 60 (59 - ) Glucose 105 (65-110) mg/dL Calcium 9.1 (8.4-10.2) mg/dL Total Bilirubin 0.7 (0.2-1.3) mg/dL AST 30 (17-59) U/L ALT 21 (6-50) U/L Alkaline Phosphatase 74 (38-126) U/L Total Creatine Kinase 156 (55-170) U/L Total Protein 7.1 (6.3-8.2) g/dL Albumin 4.2 (3.5-5.1) g/dL Urine Color Red H (Yellow) Urine Appearance Turbid H (Clear) Urine pH 6.0 (5.0-9.0) Ur Specific Bim 1.010 (1.001-1.035) Urine Protein 3+ H (Negative) mg/dL Urine Glucose (UA) Negative (Negative) mg/dL Urine Ketones TNP Ur Blood (Man) 3+ H (Negative) Urine Nitrate TNP Urine Bilirubin TNP Urine Urobilinogen 0.2 (<2.0) mg/dL Leukocyte Esterase Rfl TNP Urine RBC >100 H (0-2) /hpf Urine WBC 4-6 H (0-3) /hpf Ur Squamous Epith Cells Few (Few) /hpf Urine Bacteria Trace (None) /hpf Discharge Plan Discharge Clinical Impression: Acute UTI Hematuria Qualifiers: Hematuria type: gross Qualified Code(s): R31.0 - Gross hematuria Patient Disposition: Home Condition: Stable Instructions: Antibiotic Form, Urinary Tract Infection in Men (ED), Hematuria (ED) Additional Instructions: Follow-up with urology in the next 2-3 days for reassessment, rest and stay well hydrated, take the antibiotics as prescribed to completion. Follow-up with your primary care physician in the next 2-3 days for reassessment as well. The urine culture should return in the next 2-3 days to help further guide antibiotics if you are not having symptomatic improvement in the next 48 hours he may benefit getting adjusted to a alternative antibiotic based upon the current sugar results. Return immediately to the emergency department for any new or concerning symptoms especially difficulty urinating, fever, nausea, chest pain, difficulty breathing, lightheadedness, palpitations, vomiting, back pain, abdominal pain, or any emergent concerns for life, limb, eyesight. Patient Language: Bhutanese Prescriptions: New cephalexin 500 mg capsule 500 mg PO Q6H 7 Days Qty: 28 0RF No Action omeprazole 20 mg capsule,delayed release(DR/EC) 20 mg PO DAILY PRN (Reason: Heartburn) aspirin 81 mg Tablet,Delayed Release (Dr/Ec) 81 mg PO QAM Qty: 90 3RF atorvastatin 80 mg tablet 80 mg PO DAILY Qty: 90 3RF isosorbide mononitrate 60 mg Tablet Extended Release 24 Hr 60 mg PO QAM Qty: 90 3RF nitroglycerin [Nitrostat] 0.4 mg Tablet, Sublingual 0.4 mg sublingual Q5MIN PRN (Reason: Chest Pain) Qty: 30 3RF clopidogrel 75 mg tablet Follow-up/Referrals: Hero Keller MD [Physician, Urology] - 3 Days UNKNOWN,DOCTOR [Primary Care Provider] Time of Disposition: 00:17
[2024-11-23] MEDS: cefTRIAXone 2 GM in SODIUM CHLORIDE 0.9% IV 100 ML 200 ML IVPB (23:29)
[2024-11-23 23:31] LABS: Hematocrit 40.9 % (42.0-52.0); Hemoglobin 13.4 g/dL (14.0-18.0); Immature Granulocyte Percent A 0.2 % (0-0.5); Lymphocytes Absolute Auto 1.63 K/mm3 (0.9-3.2); Mean Corpuscular HGB Conc 32.8 g/dl (32-36); Mean Corpuscular Hemoglobin 30.1 pg (26-34); Mean Corpuscular Volume 91.9 fl (80-100); Nucleated Red Blood Cells Absolute Auto 0.000 K/mm3 (0.0-0.012); Nucleated Red Blood Cells Perc 0.0 % (0.0-0.2); Platelet Count Result 199 k/mm3 (150-375); Red Blood Count 4.45 M/mm3 (4.6-6.20); White Blood Count 4.9 K/mm3 (4.5-10.0)
[2024-11-23 23:42] LABS: INR 1.0; Partial Thromboplastin Time 25.9 Seconds (22.3-36.8); Prothrombin Time 13.5 Seconds (11.1-14.7)
[2024-11-23 23:43] LABS: Alanine Aminotransferase 21 U/L (6-50); Albumin Level 4.2 g/dL (3.5-5.1); Alkaline Phosphatase 74 U/L (38-126); Anion Gap 5 mmol/L (4-12); Aspartate Amino Transferase 30 U/L (17-59); Bilirubin,Total 0.7 mg/dL (0.2-1.3); Blood Urea Nitrogen 18 mg/dL (9-20); Calcium 9.1 mg/dL (8.4-10.2); Carbon Dioxide 30 mmol/L (22-30); Chloride 101 mmol/L (98-107); Creatine Kinase 156 U/L (55-170); Estimated CRCL calculation 72 ml/min; Estimated Glomerular Filt Rate > 60; Glucose 105 mg/dL (65-110); Potassium 4.0 mmol/L (3.4-5.0); Sodium 136 mmol/L (137-145); Total Protein 7.1 g/dL (6.3-8.2)
[2024-11-24] VITALS: BP 110/69; O2SAT 95
[2024-11-24 00:01] VITALS: O2SAT 96
[2024-11-24 00:15] VITALS: O2SAT 97
[2024-11-24 00:30] VITALS: BP 103/55; O2SAT 97
[2024-11-24 00:31] VITALS: O2SAT 100
== END 2024-11-24 00:39 | disposition home or self-care (01) ==
PROVIDERS: Emergency Medicine; Emergency Provider Student in an Organized Health Care Education/Training Program
DX: N39.0 Urinary tract infection, site not specified (principal); R31.0 Gross hematuria; I10 Essential (primary) hypertension; E78.5 Hyperlipidemia, unspecified; K21.9 Gastro-esophageal reflux disease without esophagitis; N40.0 Benign prostatic hyperplasia without lower urinary tract symptoms; Z95.5 Presence of coronary angioplasty implant and graft
CPT/HCPCS: 36415; 80053; 81001; 82550; 85025; 85610; 85730; 87086; 96365; 99284; J0696